=== PATIENT | male | born 1925 | race Caucasian/White ===

== ENCOUNTER 2016-09-13 06:33 | Inpatient (IN) | payer MEDICARE ==
--- NOTE | ~2016-09-13 | HP ---
History And Physical [id number] [facility] [place]. [address] NAME: MILLA HUNTLEY JR : [birth year] STATUS : ADM IN [facility]#: [id number] AGE: 89 ADM/REG DATE : 09/13/16 MR#: [id number] REPORT SERV DATE: 09/13/16 DICTATED BY: MAX CASTRO DATE: 09/13/16 REPORT STATUS : Draft TRANSCRIBED BY: MODL DATE: 09/13/16 DATE OF ADMISSION: 09/13/2016 DICTATED BY: Estella Varela, nurse practitioner, dictating for Dr. Max Castro. CHIEF COMPLAINT: Altered mental status. HISTORY OF PRESENT ILLNESS: The patient is an 89-year-old male, who is a resident of [facility] where he was followed by [facility]. The patient found to be unresponsive this morning, was transferred to [facility] ER for further evaluation. On admission, the patient found to be unresponsive with hypotension with admission blood pressure was 56/40. The patient is DNR, did receive a bolus of normal saline, and the patient now is awake and responsive. The patient's at bedside and reports that the patient started to wake up about an hour ago. The patient's reports the patient is okay with antibiotics, but will remain DO NOT RESUSCITATE. The patient is awake, but still confused, unable to obtain complete medical, family, and social history. Information obtained from [facility] electronic medical record as well as from the patient's at bedside. She confirmed the patient's medical, family, and social history. The patient's reports the patient with history of urinary retention. Had his Acosta placed on 07/15/2016 at [facility]. She reports she is not aware of it being changed. ALLERGIES: THE PATIENT IS ALLERGIC TO SULFA, QUESTIONABLE CAUSING RASH; GENTAMICIN SULFATE FROM GARAMYCIN, CAUSES HIVES; BUPROPION HYDROCHLORIDE FROM WELLBUTRIN, REACTION DID NOT RESPOND WELL. CODE STATUS: DNR. MEDICATIONS: Home med includes, 1. Tylenol p.r.n. every 6 hours. 2. Elavil 100 mg p.o. at 1900. 3. Aspirin 81 mg daily. 4. Colace 100 mg p.o. daily. 5. Levothyroxine 100 mcg p.o. daily. 6. Remeron 45 mg p.o. at 1900. 7. Brimonidine ophthalmic solution 0.1% one drop in both eyes at 0700 and 1900. 8. Xalatan 0.005% ophthalmic 2.5 mL one drop in both eyes at 1900. 9. Promethazine 25 mg every 6 hours p.r.n. for nausea and vomiting. 10.Seroquel 25 mg every 8 hours p.r.n. for agitation. 11.Timolol 0.5% ophthalmic solution one drop each eye at 0700 and 1900. PAST MEDICAL HISTORY: Positive for hypertension, hyperlipidemia, glaucoma and macular History And Physical [address] [address] NAME: MILLA HUNTLEY : [birth year] STATUS : ADM IN [facility]#: [id number] AGE: 89 ADM/REG DATE : 09/13/16 MR#: [id number] REPORT SERV DATE: 09/13/16 DICTATED BY: MAX CASTRO DATE: 09/13/16 REPORT STATUS : Draft TRANSCRIBED BY: SUE DATE: 09/13/16 degeneration bilateral eyes, hypothyroidism, BPH, chronic bilateral hearing deficit, history of prostate cancer, TIA in 2011, history of bilateral lower extremity DVT with reports the patient was on Coumadin but this was continued secondary to the patient having a GI bleed. He was off Coumadin for approximately three years and was placed on Pradaxa and it was discontinued then sometime in 2015. reports that the patient with history of urinary retention has had that need to have a Acosta catheter, but in 2016 he had pulled out his Acosta catheter multiple times, unsure if Pradaxa was discontinued because of that. She reports that his Acosta has been held since 10/03 until it was replaced again in 07/15/2016 for ongoing urinary retention. History of sleep apnea. Use CPAP in 1992, but did not use CPAP too long. The patient with a history of murmur since childhood. SURGICAL HISTORY: Positive for transurethral resection of prostate, cystolitholapaxy, inferior vena cava filter 2010 at [facility], cholecystectomy, left neck melanoma excision in 2001, bilateral inguinal hernia repair, lung tumor resection in 1964 which was benign. FAMILY HISTORY: Father of Alzheimer complication. Mother of stroke. She had heart disease. Also, mother's brother of blood clot. SOCIAL HISTORY: The patient is . He had smoked from 1950 and 1959. He has not smoked since then. She reports he stopped smoking when he had lung tumor. The patient with no history of alcohol or illicit drug use. 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 They have two children, but both , one from a motor vehicle accident and one from drowning. REVIEW OF SYSTEMS: The patient's reports the patient had been unresponsive this morning, but he is now awaken for almost an hour and is able to recognize her. The patient's reports the patient did have a history of mini stroke in 2011. The patient's reports the patient does have bilateral glaucoma and macular degeneration, on several eye drops. reports the patient is now off oxygen and he is no complain of breathing difficulty. Nurse confirm this, reports the patient was unresponsive this morning and has started to awaken with after an L of IV fluid. The patient was placed on non-rebreather, now on room air and stable. reports the patient has no issue with swallowing. reports the patient with no history of lung problem except he had that tumor removed, which was benign and he has not had any issues since then. CV, the patient reports the patient with no history of coronary artery disease, but History And Physical [address] [place]. [address] NAME: MILLA HUNTLEY JR : [birth year] STATUS : ADM IN [facility]#: [id number] AGE: 89 ADM/REG DATE : 09/13/16 MR#: [id number] REPORT SERV DATE: 09/13/16 DICTATED BY: MAX CASTRO DATE: 09/13/16 REPORT STATUS : Draft TRANSCRIBED BY: MODL DATE: 09/13/16 does have a history of hypertension, reports that the patient does have a murmur since childhood. Abdomen, the patient's reports the patient has had history of prostate cancer, which he had surgery, also had history of urinary retention. Had a Acosta in the past, but he had multiple self removed Acosta with possible issue of bleeding, but not sure that the reason why his Pradaxa was removed in 2015. She reports that the patient's most recent Acosta was inserted at [facility] on 07/15/2016. She reports no knowledge of it being replaced at [facility]. The patient's reports that the patient has been bed bound and has not done much activity at [facility]. reports the patient with history of bilateral lower leg blood clot. He did get filter, was on Coumadin at some point after that, but this was discontinued because of GI bleed. She reports that he was off Coumadin for three years and then three years later was placed on Pradaxa, but could not tell me why exactly Pradaxa was discontinued, but she reports that he had discontinued sometime in 10/03 and not sure if it is secondary to him pulling out his Acosta. reports the patient was followed by [facility] and he is DNR and is okay if Acosta cannot be replaced today, but he is in agreement with trying to attempt to replace Acosta. Vital Signs: The patient on admission with systolic BP of 56/40, temp 97.5, pulse of 82, respiratory rate 12, sat O2 of 96. Currently BP of 114/68, heart rate 85, respiratory rate 16, sat O2 on room air 97%. Laboratory study with WBC of 8.8, hemoglobin 11.3, hematocrit 33.8. Sodium 146, potassium 4.1, chloride 114, CO2 of 23, BUN 110, creatinine 1.24, glucose of 171. INR 1.4, PT 17.0, PTT 29.5. Urine drug screen positive for tricyclic only. Acetaminophen level 2.7, salicylate level is less than 1.7, alcohol less than 10. Troponin 0.17. Magnesium 1.8. Urinalysis positive nitrite, large leukocytes, wbc 76, wbc clumps moderate. Chest x-ray cardiomegaly, postoperative changes in left chest, left parahilar opacity may represent atelectasis, infiltrate, or scarring. Early infiltrate and/or atelectasis in the right lung base. Head CT negative except for old changes. PHYSICAL EXAMINATION: GENERAL: The patient is now awake and responsive, recognize and self, but otherwise confused somewhat days. HEENT: Normocephalic, atraumatic. Nonicteric bilaterally. NECK: Moves neck without any pain. No pain on palpation. LUNGS: Clear to auscultation bilaterally. No wheezing noted. CV: Regular rate and rhythm. Normal S1, S2. No murmurs noted. ABDOMEN: Soft, nontender. Bowel sounds x4 quadrants. : The patient with Acosta. Acosta catheter appears to be old likely not change, but we will confirm with nursing. EXTREMITIES: Bilateral upper extremity, no edema noted. Generalized arthritic changes in History And Physical [address] [place]. [address] NAME: MILLA HUNTLEY JR : [birth year] STATUS : ADM IN [facility]#: [id number] AGE: 89 ADM/REG DATE : 09/13/16 MR#: [id number] REPORT SERV DATE: 09/13/16 DICTATED BY: MAX CASTRO DATE: 09/13/16 REPORT STATUS : Draft TRANSCRIBED BY: SUE DATE: 09/13/16 bilateral upper and lower extremity. Bilateral lower extremity, no edema noted. ASSESSMENT: 1. Altered mental status. 2. Hypotensive. 3. Acute kidney injury. 4. Pyuria. 5. History of urinary retention, Acosta dependent. 6. History of stroke with no residual deficits. 7. History of bilateral lower extremity deep venous thrombosis, status post vena cava filter placement in 2010. 8. History of bilateral glaucoma and macular degeneration. 9. Hypothyroidism. 10.History of benign prostatic hypertrophy, status post transurethral resection. 11.History of gastrointestinal bleed. The patient on aspirin. 12.The patient is DNR. 13.Hypomagnesemia. His admission magnesium was 1.9. Will be replaced with electrolyte protocol and will follow up on magnesium level in a.m. 14.Also, the patient with elevated troponin with admission troponin at 0.17 since the patient is DNR. We will just monitor and followup troponin. Question if cardiac ischemia secondary to the patient hypotensive status. The patient EKG with no acute changes. PLAN: 1. We will plan to admit the patient for further observation and treatment. The patient currently is DNR, but is in agreement with continue IV fluids as well as antibiotic if needed. The patient urinalysis appeared to be positive, but question accuracy given the patient's Acosta is old likely colonized with multiple bacteria. We will need to change Acosta and obtain better clean sample once Acosta change. We will obtain urine sample from new Acosta. 2. We will follow up urine culture. We will initiate Rocephin 1 g IV for treatment of possible UTI. 3. We will continue IV fluid given the patient responded well to IV therapy with improvement of his blood pressure and mental status. We will obtain labs in a.m. to follow up electrolytes and we will place the patient on electrolyte protocol. The patient is at risk for electrolyte derangement. 4. We will monitor blood pressure. The patient is DNR and we will continue comfort measure, but the patient is at risk for recurrent hypotension. 5. We will continue home regimen of aspirin, levothyroxine, Elavil, Remeron, and all his eye drops. We will hold off Colace and p.r.n. Seroquel. We will add IV Ativan p.r.n. for anxiety or agitation, Zofran IV p.r.n. for nausea and vomiting, and morphine 1 mg to 2 mg IV p.r.n. for pain. We will place the patient on full liquid diet for now with aspiration precaution, given the patient's improvement on mental status. 6. The patient mental status had improved and continues to improve likely secondary to improvement of hydration. Question if hypotension secondary to sepsis process given the patient sudden responding to IV fluid without antibiotic even given. 7. Discharge plan. If the patient medical condition stabilized and no further History And Physical [address] [address] NAME: MILLA HUNTLEY : [birth year] STATUS : ADM IN [facility]#: [id number] AGE: 89 ADM/REG DATE : 09/13/16 MR#: [id number] REPORT SERV DATE: 09/13/16 DICTATED BY: MAX CASTRO DATE: 09/13/16 REPORT STATUS : Draft TRANSCRIBED BY: SUE DATE: 09/13/16 antimicrobials as needed in the hospital, we will likely to discharge the patient back to [facility] for continue hospice care with Stephy. GARRET/SUE Max Castro M.D. / [id number] CC: Dann Moy M.D.
--- NOTE | ~2016-09-13 | DS ---
Discharge Summary [facility] [address] [place]. [address] NAME: MILLA HUNTLEY JR : [birth year] STATUS : DIS IN PAT#: [id number] AGE: 89 ADM/REG DATE : 09/13/16 MR#: [id number] REPORT SERV DATE: 09/24/16 DICTATED BY: MAX CASTRO DATE: 09/24/16 REPORT STATUS : Draft TRANSCRIBED BY: SUE DATE: 09/24/16 Data Collection from hospitalization DISCHARGE DIAGNOSES: 1. Altered mental status secondary to sepsis and hypoxia. 2. Enterococcal faecalis urinary tract infection. 3. Acute kidney injury, likely secondary to acute tubular necrosis/sepsis. 4. History of urinary retention. 5. Hypoxia. 6. Hypertension. 7. History of sleep apnea. 8. Hyperlipidemia. 9. Glaucoma. 10.Macular degeneration. 11.Hypothyroidism. 12.Benign prostatic hypertrophy. 13.History of prostate cancer. 14.History of transient ischemic attack. 15.Former smoker. CONSULTATIONS: None. PROCEDURES PERFORMED: CT scan of the brain without contrast on 09/13/2016. DISPOSITION: [facility]. HOSPITAL COURSE: This was an 89-year-old man who [facility] by [facility]. He was found to be unresponsive on the morning of this admission, and transferred to the [facility] Emergency Room. On admission, the patient was found to be unresponsive with hypotension with admission blood pressure 56/40. The patient was a DNR code status. He did receive a bolus of normal saline. He became awake and responsive. The patient's reported that the patient was okay with antibiotics, but would remain a DNR code status. He still had some confusion. He was admitted to the hospital at this time for further evaluation and treatment. Upon admission, IV fluids were continued. It was felt that the patient's Acosta catheter was old and likely colonized with multiple bacteria. It was felt that we would need to change the Acosta. Urine sample would be obtained from the new Acosta. IV Rocephin was going to be initiated for treatment of possible urinary tract infection. The patient was placed on electrolyte protocol. His home regimen of aspirin, levothyroxine, Elavil, Remeron, and eye drops were continued. We would hold off on Colace and Seroquel. IV Ativan would be given as needed for anxiety or agitation. IV Zofran would be given for nausea and vomiting. Morphine would also be given IV as needed for pain. The patient was going to be placed on a full liquid diet with aspiration precautions. The following day, the patient was still confused. Magnesium supplementation was given. On 09/15/2016, the patient was now unresponsive. His had requested comfort measures. All oral medications were going to be stopped. His blood pressure was stable for now. He remained afebrile. The patient had pulled his Acosta catheter out during the night. A referral was made to [facility]. The Discharge Summary [place] [id number] [facility] [place]. [address] NAME: MILLA HUNTLEY : [birth year] STATUS : DIS IN PAT#: [id number] AGE: 89 ADM/REG DATE : 09/13/16 MR#: [id number] REPORT SERV DATE: 09/24/16 DICTATED BY: MAX CASTRO DATE: 09/24/16 REPORT STATUS : Draft TRANSCRIBED BY: SUE DATE: 09/24/16 patient's plan of care was discussed. On 09/16/2016, the patient was still unresponsive. The patient did have some agitation during the night. He did receive Ativan. It was felt that the patient was actively dying. Comfort measures were continued. His condition continued to decline, and later that afternoon, he was found without blood pressure, pulse, or respirations. He was pronounced at 3:04 p.m. and released to the above-mentioned home. Information collected by: Niurka Fragoso I submit the above information as my discharge summary. EVELINE/SUE Max Castro M.D. / [id number] CC: Dann Moy M.D.
[~2016-09-13 06:33] MED LIST: ACETSUP650 PR; AMB10 PO; AMIT100 PO; AMIT50 PO; AMITRIPTYLIN150 MG PO; AMPI500 PO; ASAB PO; ASAEC PO; ATV.5 PO; B121000P IM; BACTROINT TOP; CENTRUM TAB1 TAB PO; CIP5 PO; COMBIGAN0.2 MG/0.5 OP; COUMADIN3 MG PO; DORZOLAMIDE2 % OP; DSS PO; EYE VITAMIN PO; FIBER LAXATIVE PO; FIBERCON PO; HYTRIN10 MG PO; LEVAQUIN750 MG PO; LEVOTHYROXIN75 MCG PO; LEXAPRO10 PO; LOVENOX40 SC; LUMIGAN2.5 ML OPH; LUPRON DEPOT30 MG IM; MAXIMUM D3 PO; METAMUCIL CAN7 OZ PO; MIRALAXPKT PO; MULTIPLE VIT PO; MULTIVITAMI1 PO; NORCO1 TA1 PO; NORV10 PO; NORV5 PO; OCUVITE PO; PEPTO-BISMOL TA1 TAB PO; PERI-COLACE1 TAB PO; PLAVIX PO; PRADAXA150 MG PO; PRIN20 PO; PROTONIX PO; REMERON30 MG PO; SENTAB PO; SEROQUEL25 PO; SYN075 PO; T PO; THERALITH PO; THERALITH XR PO; TRICOR145 PO; UROGESIC-BLU PO; VITA EYES; XALAT OPH; ZESTRIL10 MG PO; ZESTRIL5 MG PO; ZOFRAN ODT4 MG PO/SL; [UNRECOGNIZED DRUG - OTHER] PO; [UNRECOGNIZED DRUG - OTHER] PO; [UNRECOGNIZED DRUG - REMARK] IO
[2016-09-13 08:10] LABS: BASOPHILS 0.2 %; BASOPHILS ABSOLUTE 0.02 10/3/uL (0.0-0.16); EOSINOPHILS 2.4 %; EOSINOPHILS ABSOLUTE 0.21 10/3/uL (0.0-0.53); IMMATURE GRANULOCYTES 0.3 %; IMMATURE GRANULOCYTES ABSOLUTE 0.03 10/3/uL (0.0-0.11); LYMPHOCYTES 11.8 %; LYMPHOCYTES ABSOLUTE 1.04 10/3/uL (0.67-4.30); MEAN CORPUS HGB CONC 33.4 g/dL (32.0-36.0); MEAN CORPUSCULAR HEMOGLOB 31.4 pg (26.0-34.0); MEAN CORPUSCULAR VOLUME 93.9 fL (80-100); MEAN PLATELET VOLUME 10.3 fL (9.2-13.0); MONOCYTES ABSOLUTE 0.53 10/3/uL (0.21-1.20); NEUTROPHILS 79.3 %; NEUTROPHILS ABSOLUTE 6.96 10/3/uL (2.02-8.40); RBC DISTRIBUTION WIDTH 14.4 % (12.0-16.0)
[2016-09-13 08:11] LABS: HEMATOCRIT 33.8 % (40.0-51.0); HEMOGLOBIN 11.3 g/dL (13.6-17.8); MANUAL DIFF NO %; PLATELET COUNT 183 10/3/uL (150-400); WHITE BLOOD CELLS 8.8 10/3/uL (4.5-10.5)
[2016-09-13 08:11] LABS: ASCORBIC ACID (UR NOT ORDER) NEG (NEG); BILIRUBIN, URINE NEGATIVE (NEG); ER URINALYSIS TAT 0 Hrs 20 Mins; KETONE, URINE NEGATIVE (NEG); LEUKOCYTE ESTERASE(NOT OR LARGE (NEG); WBC (NOT ORDERED) (RFLEX) 76 (0-5)
[2016-09-13 08:12] LABS: NITRITE (URINE) POS (NEG)
[2016-09-13 08:20] LABS: INTERNATIONAL NORMAL RATI 1.4 UNITS (-); PARTIAL THROMBO TIME 29.5 SEC (22.5-37.2)
[2016-09-13 08:26] LABS: ACETAMINOPHEN LEVEL (TYLENOL) 2.7 MCG/ML (10.0-20.0); CHLORIDE, SERUM 114 MMOL/L (96-112); CREATININE 1.24 MG/DL (0.70-1.30); GFR AFRICAN AMERICAN 59 ML/MIN (>=60); GFR NON AFRICAN AMERICAN 51 ML/MIN (>=60); POTASSIUM, SERUM 4.1 MMOL/L (3.5-5.3)
[2016-09-13 08:27] LABS: ALCOHOL < 10 MG/DL (0); BUN (BLOOD UREA NITROGEN) 10 MG/DL (6-23); CALCIUM, SERUM 7.7 MG/DL (8.5-10.4); CHEST PAIN PROFILE TAT 0 Hrs 20 Mins; CO2 (CARBON DIOXIDE) 23 MMOL/L (24-34); GLUCOSE, SERUM 171 MG/DL (60-99); SALICYLATE < 1.7 MG/DL (-); SODIUM, SERUM 146 MMOL/L (135-148); TROPONIN I 0.17 NG/ML (<0.05)
[2016-09-13 08:44] LABS: AMPHETAMINES (NOT ORD) NEG (NEG); BARBITURATES (NOT ORDERED NEG (NEG); BENZODIAZEPINES (NOT ORD) NEG (NEG); CANNABINOIDS (THC) NEG (NEG); COCAINE (NOT ORDERED) NEG (NEG); OPIATES NEG (NEG); PHENCYCLIDINE(PCP) NEG (NEG); TRICYCLICS POS (NEG)
[2016-09-13] MEDS ORDERED: AMIT100 PO (11:09)
[2016-09-13] MEDS ORDERED: HALF81 PO (11:09)
[2016-09-13] MEDS ORDERED: DSS PO (11:10)
[2016-09-13] MEDS ORDERED: REMERON45 MG PO (11:10)
[2016-09-13] MEDS ORDERED: LEVOTHYROXIN100 MCG PO (11:10)
[2016-09-13] MEDS ORDERED: XALAT OPH (11:10)
[2016-09-13] MEDS ORDERED: T PO (11:11)
[2016-09-13] MEDS ORDERED: ALPHAGAN P0.1 % OPH (11:11)
[2016-09-13] MEDS ORDERED: TIMOLOL MAL0.5 % OPH (11:11)
[2016-09-13] MEDS ORDERED: SEROQUEL25 PO (11:12)
[2016-09-13] MEDS ORDERED: PR25 PO (11:12)
[2016-09-14 07:06] LABS: BASOPHILS 0.1 %; BASOPHILS ABSOLUTE 0.01 10/3/uL (0.0-0.16); EOSINOPHILS 0.1 %; EOSINOPHILS ABSOLUTE 0.01 10/3/uL (0.0-0.53); HEMATOCRIT 32.6 % (40.0-51.0); HEMOGLOBIN 10.8 g/dL (13.6-17.8); IMMATURE GRANULOCYTES 0.1 %; IMMATURE GRANULOCYTES ABSOLUTE 0.01 10/3/uL (0.0-0.11); LYMPHOCYTES 12.6 %; LYMPHOCYTES ABSOLUTE 0.88 10/3/uL (0.67-4.30); MANUAL DIFF NO %; MEAN CORPUS HGB CONC 33.1 g/dL (32.0-36.0); MEAN CORPUSCULAR VOLUME 96.7 fL (80-100); MEAN PLATELET VOLUME 10.4 fL (9.2-13.0); MONOCYTES 10.7 %; MONOCYTES ABSOLUTE 0.75 10/3/uL (0.21-1.20); NEUTROPHILS 76.4 %; NEUTROPHILS ABSOLUTE 5.34 10/3/uL (2.02-8.40); PLATELET COUNT 159 10/3/uL (150-400); RBC DISTRIBUTION WIDTH 14.8 % (12.0-16.0); RED CELL COUNT 3.37 10/6/uL (4.7-6.1)
[2016-09-14 07:17] LABS: BUN (BLOOD UREA NITROGEN) 18 MG/DL (6-23); CHLORIDE, SERUM 113 MMOL/L (96-112); CO2 (CARBON DIOXIDE) 22 MMOL/L (24-34); GFR AFRICAN AMERICAN 30 ML/MIN (>=60); GFR NON AFRICAN AMERICAN 26 ML/MIN (>=60); GLUCOSE, SERUM 119 MG/DL (60-99); POTASSIUM, SERUM 4.5 MMOL/L (3.5-5.3); SODIUM, SERUM 145 MMOL/L (135-148)
[2016-09-14 08:44] LABS: ASCORBIC ACID (UR NOT ORDER) NEG (NEG); BILIRUBIN, URINE NEGATIVE (NEG); KETONE, URINE NEGATIVE (NEG); LEUKOCYTE ESTERASE(NOT OR LARGE (NEG); WBC (NOT ORDERED) (RFLEX) 154 (0-5)
[2016-09-15 10:13] LABS: CALCIUM, SERUM 8.2 MG/DL (8.5-10.4); CHLORIDE, SERUM 112 MMOL/L (96-112); CO2 (CARBON DIOXIDE) 20 MMOL/L (24-34); POTASSIUM, SERUM 4.6 MMOL/L (3.5-5.3); SODIUM, SERUM 143 MMOL/L (135-148)
[2016-09-15 10:14] LABS: BUN (BLOOD UREA NITROGEN) 31 MG/DL (6-23); CREATININE 1.57 MG/DL (0.70-1.30); GFR AFRICAN AMERICAN 45 ML/MIN (>=60); GFR NON AFRICAN AMERICAN 39 ML/MIN (>=60); GLUCOSE, SERUM 144 MG/DL (60-99)
== END 2016-09-16 17:31 | disposition expired | DRG 698 ==
LOC: ER 06:33 → ER/OF 13:02 → 4EA 14:02
PROVIDERS: Emergency Medicine; Family Medicine; Nurse Practitioner Family
DX: T83.511A Infection and inflammatory reaction due to indwelling urethral catheter, initial encounter (principal); N17.0 Acute kidney failure with tubular necrosis; A41.9 Sepsis, unspecified organism; I95.9 Hypotension, unspecified; E83.42 Hypomagnesemia; R41.82 Altered mental status, unspecified; E03.9 Hypothyroidism, unspecified; Z86.73 Personal history of transient ischemic attack (TIA), and cerebral infarction without residual deficits; Z66 Do not resuscitate; B95.2 Enterococcus as the cause of diseases classified elsewhere; B96.89 Other specified bacterial agents as the cause of diseases classified elsewhere
CPT/HCPCS: 70450; 71010; 80048; 80305; 80307; 81001; 83735; 84484; 85025; 85610; 85730; 87040; 87077; 87086; 87186; 93005; 99285; A9270-GY; J2405